=== PATIENT | male | born 1955 | race Caucasian/White ===

== ENCOUNTER 2017-10-01 15:39 | Emergency (ER) ==
[2017-10-01 15:50] VITALS: BP 129/93; TEMP 98.7; BMI 25.4
--- NOTE | 2017-10-01 16:13 | ED.PDOC ---
General ED Provider: Dr. HAMILTON GOODSON Chief Complaint: Hand Laceration Stated Complaint: Laceration Rt Hand. Was re-installing a sharpened blade on to my lawnmower she his hand slipped and cut the palm of his hand. Was bleed profusely and irrigated wound with water at home Time Seen by Physician: 15:45 Mode of Arrival: Walk-In Information Source: Patient Primary Care Provider: KAILEE HEAD Nursing and Triage Documentation Reviewed and Agree: Yes Reviewed sepsis parameters & appropriate labs ordered?: Yes System Inflammatory Response Syndrome: Pulse >90 BPM, Not Applicable Sepsis Protocol: For patient's 13 years and over: Temp is 96.8 and below OR 101 and greater Pulse >90 BPM Resp >20/minute Acutely Altered Mental Status Are patient's symptoms suggestive of a new infection, such as: -Pneumonia -Skin, Soft Tissue -Endocarditis -UTI -Bone, Joint Infection -Implantable Device -Acute Abdominal Infection -Wound Infection -Meningitis -Blood Stream Catheter Infection -Unknown System Inflammatory Response Syndrome: Not Applicable Trauma/Injury Complaint Exam - Trauma Complaint/Exam Location of Pain or Injury: Reports: RUE (palm of hand) Mechanism of Injury: Reports: Incised Symptoms Are: Still present Timing of Treatment: Immediate Initial Severity: Severe Current Severity: Severe Character: Reports: Burning, Sharp, Stabbing Aggravating: Reports: Movement Alleviating: Reports: Rest Associated Signs and Symptoms: Reports: Extremity disuse. Denies: LOC, Confusion, Memory loss, Lethargy, Vomiting, Bleeding, Bruising, Swelling, Painful respiration, Hoarseness, Dysphagia, Hemoptysis, Significant blood loss Related History: Denies: Similar episode, Anticoagulants, Occupational injury Penetrating Injury Risk Factors: Reports: None Skin Findings: Present: Tenderness, Laceration Differential Diagnoses: Laceration Review of Systems - Review Of Systems Constitutional: Reports: No symptoms Eyes: Reports: No symptoms Ears, Nose, Mouth, Throat: Reports: No symptoms Respiratory: Reports: No symptoms Cardiac: Reports: No symptoms GI: Reports: No symptoms : Reports: No symptoms Musculoskeletal: Reports: No symptoms Skin: Reports: No symptoms Neurological: Reports: No symptoms Endocrine: Reports: No symptoms Hematologic/Lymphatic: Reports: No symptoms All Other Systems: Reviewed and Negative Past Medical History - Past Medical History Endocrine: Reports: None Cardiovascular: Reports: None Respiratory: Reports: None Hematological: Reports: None Gastrointestinal: Reports: None Genitourinary: Reports: None Neuro/Psych: Reports: None Musculoskeletal: Reports: None Cancer: Reports: None - Surgical History General Surgical History: Reports: None - Family History Family History: Reports: None - Social History Smoking Status: Never smoker Hx Substance Use: No Alcohol Screening: None - Immunizations Tetanus Shot up to Date: Yes (last year) Physical Exam - Physical Exam Appearance: Well-appearing, No pain distress, Well-nourished Eyes: MARY, EOMI, Conjunctiva clear ENT: Ears normal, Nose normal, Oropharynx normal Respiratory: Airway patent, Breath sounds clear, Breath sounds equal, Respirations nonlabored Cardiovascular: RRR, Pulses normal, No rub, No murmur GI/: Soft, Nontender, No masses, Bowel sounds normal, No Organomegaly Musculoskeletal: Normal strength, ROM intact, No edema, No calf tenderness Skin: Warm (laceration palm rt hand-irregular border over lateral palmar aspect) , Dry, Normal color Neurological: Sensation intact, Motor intact, Reflexes intact, Cranial nerves intact, Alert, Oriented Psychiatric: Affect appropriate, Mood appropriate Procedures - Laceration/Wound Repair hand laceration Wound Description: Linear, Irregular, Flap, Stellate, Nail-avulsed, Skin tear, Joint proximity, Other Wound Length (cm): 3 cm Wound Width: 2mm Wound Depth: 3mm Wound Explored: Contaminated Wound Irrigated: Yes Wound Prep: Saline, Hibiclens, Betadine, Scrub Anesthesia: Lidocaine Wound Debrided: Minimal Wound Repaired With: Sutures Suture Size and Type: 3-0 nylon Number of Sutures: 6 Layer Closure?: No Sterile Dressing Applied?: Yes Critical Care Note - Critical Care Note Total Time (mins): 30 Course - Course Orders, Labs, Meds: Orders Category Date Time Status Diphth,Pertuss(Acell),Tet Vac [Boostrix] MEDS 10/01/17 16:19 Discontinued 0.5 ml IM .ONCE ONE Lidocaine HCl/Pf [Lidocaine HCl 1% Sdv] MEDS 10/01/17 16:19 Discontinued 5 ml SUBCUT ONCE STA HAND, RIGHT 3 VIEWS Stat RADS 10/01/17 16:27 Taken Medications Discontinued Medications Generic Name Dose Route Start Last Admin Trade Name Freq PRN Reason Stop Dose Admin Diphtheria/Pertussis/Tetanus Vacc 0.5 ml 10/01/17 16:19 Boostrix IM 10/01/17 16:20 .ONCE ONE Lidocaine HCl 5 ml 10/01/17 16:19 10/01/17 17:32 Lidocaine Hcl 1% Sdv SUBCUT 10/01/17 16:20 5 ml ONCE STA Administration Vital Signs: Temp Pulse Resp BP Pulse Ox 10/01/17 15:41 98.7 F 102 H 20 129/93 H 96 Departure - Departure Time of Disposition: 18:00 Disposition: HOME SELF-CARE Discharge Problem: Laceration of hand Instructions: Care For Your Stitches (ED), Laceration (ED) Condition: Good Pt referred to PMD for follow-up: Yes (Dr Head 5-7 days) IPMP verified?: No Additional Instructions: Follow wound care instructions provided Take antibiotics as directed Take analgesics as directed Have sutures removed in 7-10 days Prescriptions: Clindamycin HCl 150 mg PO QID #28 capsule Hydrocodone/Acetaminophen [[place] 5-325 Tablet] 1 each PO Q4-6H PRN #15 tablet PRN Reason: severe pain Allergies/Adverse Reactions: Allergies Penicillins Adverse Reaction (Verified 10/01/17 15:47) Home Medications: Ambulatory Orders Clindamycin HCl 150 mg PO QID #28 capsule 10/01/17 Gabapentin [Neurontin] 300 mg PO BID PRN 10/01/17 Hydrocodone/Acetaminophen [[place] 5-325 Tablet] 1 each PO Q4-6H PRN #15 tablet Hydrocodone/Acetaminophen [[place] 7.5-325 Tablet] 1 each PO DIRECTED PRN 10/01 Disposition Discussed With: Patient, Family
[2017-10-01] MEDS ORDERED: BOOSTRIX IM ONE (16:19)
[2017-10-01] MEDS ORDERED: LIDOCAINE HCL 1% SDV SUBCUT STA (16:19)
--- NOTE | 2017-10-01 18:46 | DI ---
EXAM: Three views of the right hand. History: Right hand trauma and laceration. Findings: No acute fracture or dislocation. No abnormal calcifications or radiopaque foreign bodies . Joint spaces are relatively preserved. Impression: No acute osseous abnormality
== END 2017-10-01 18:10 | disposition home or self-care (01) ==
LOC: ED 15:39
DX: S61.411A Laceration without foreign body of right hand, initial encounter (principal); W26.8XXA Contact with other sharp object(s), not elsewhere classified, initial encounter
CPT/HCPCS: 99283